=== PATIENT | male | born 1990 | race Caucasian/White ===

== ENCOUNTER 2018-02-12 21:51 | Observation (INO) | payer SELFPAY ==
[~2018-02-12] VITALS: Ht 170.2 cm; Wt 65.0 kg
[2018-02-12 22:03] VITALS: BP 121/77; PULSE 62; RESP 18; TEMP 97.8; O2SAT 99
[2018-02-12 22:50] LABS: AUTOMATED NEUTROPHIL # 5.5 TH/MM3 (1.8-7.7); BASOPHIL # 0.1 TH/MM3 (0-0.2); BASOPHIL % 1.1 % (0.0-2.0); EOSINOPHIL # 0.4 TH/MM3 (0-0.4); EOSINOPHIL % 4.4 % (0.0-4.0); HEMATOCRIT 46.9 % (39.0-51.0); HEMOGLOBIN 16.4 GM/DL (13.0-17.0); LYMPH % 16.9 % (9.0-44.0); LYMPHOCYTE # 1.4 TH/MM3 (1.0-4.8); MEAN CORPUSCULAR HEMOGLOBIN 30.8 PG (27.0-34.0); MEAN PLATELET VOLUME 9.6 FL (7.0-11.0); MONO % 10.8 % (0.0-8.0); MONOCYTE # 0.9 TH/MM3 (0-0.9); NEUT % 66.8 % (16.0-70.0); PLATELET COUNT 183 TH/MM3 (150-450); RED BLOOD COUNT 5.33 MIL/MM3 (4.50-5.90); WHITE BLOOD COUNT 8.2 TH/MM3 (4.0-11.0)
[2018-02-12 23:07] LABS: ALBUMIN 4.3 GM/DL (3.4-5.0); AST (GOT) 16 U/L (15-37); BICARBONATE 23.1 MEQ/L (21.0-32.0); BLOOD UREA NITROGEN 6 MG/DL (7-18); CALCIUM 8.6 MG/DL (8.5-10.1); CHLORIDE 108 MEQ/L (98-107); CREATININE 1.04 MG/DL (0.60-1.30); GLOMERULAR FILTRATION RATE 85 ML/MIN (>89); GLUCOSE,RANDOM 100 MG/DL (74-106); SODIUM (NA) 142 MEQ/L (136-145)
[2018-02-12 23:08] LABS: ALT (GPT) 22 U/L (12-78)
[2018-02-12 23:10] LABS: ALKALINE PHOSPHATASE 69 U/L (45-117); TOTAL BILIRUBIN ADULT 0.4 MG/DL (0.2-1.0); TOTAL PROTEIN 7.6 GM/DL (6.4-8.2)
[2018-02-12] MEDS ORDERED: SODIUM CHLOR 0.9% 1000 ML INJ 1,000 ML IV ONE (23:30)
[2018-02-13 00:23] LABS: INTERNATIONAL NORMALIZED RATIO 1.3 RATIO; PROTHROMBIN TIME - PATIENT 12.8 SEC (9.8-11.6)
--- NOTE | 2018-02-13 00:43 | PD ---
HPI Chief Complaint: OD/ Ingestion Time Seen by Provider: 23:20 Travel History International Travel<30 days: No Contact w/Intl Traveler<30days: No Traveled to known affect area: No History of Present Illness HPI The patient is a 27 year old male who presents to the [facility] emergency department with a history of suicidal ideations and an attempt to harm himself prior to arrival at approximately 5 PM today. Patient reports that he took a box of Advil cold and cough and drink a bottle of NyQuil cold medicine. The patient reports that he also drank 2 beers. The patient reports that he has had depression with suicide attempt in the past in 2012. He reports that he has been diagnosed with bipolar disorder, however he has not ever been on any medications as an outpatient for treatment as he does not have insurance. The patient reports that since drinking the night well and ingesting the cough and cold medicine and he has had one episode of vomiting and one episode of diarrhea. The patient reports feeling sleepy, otherwise on review of systems he denies having any known recent fevers, cough or congestion, neck pain, chest pain, shortness of breath, abdominal pain, urinary symptoms, or neurologic symptoms. [facility] Past Medical History Narrative Medical The patient's past medical history is significant for bipolar disorder, history of a heart murmur, history of cardiac enlargement Heart Rhythm Problems: Yes (heart murmer and enlarged heart) Diminished Hearing: No Tetanus Vaccination: Unknown Influenza Vaccination: No Past Surgical History Narrative Surgical The patient's past surgical history is significant for right hand surgery as an Oral Surgery: Yes (right hand muscle place in his hand) Social History Alcohol Use: Yes (Drinks alcohol 4-5 times per week) Tobacco Use: No Substance Use: Yes (smoke a lot of marijauna) Allergies-Medications (Allergen,Severity, Reaction): Coded Allergies: shrimp (Verified Allergy, Severe, Anaphylaxis, 02/12/18) Reported Meds & Prescriptions Reported Meds & Active Scripts Active No Active Prescriptions or Reported Medications Review of Systems Except as stated in HPI: all other systems reviewed are Neg General / Constitutional: No: Fever Eyes: No: Visual changes HENT: No: Headaches Cardiovascular: No: Chest Pain or Discomfort Respiratory: No: Shortness of Breath Gastrointestinal: Positive: Nausea, Vomiting, Diarrhea, No: Abdominal Pain Genitourinary: No: Dysuria Musculoskeletal: No: Pain Skin: No Rash Neurologic: No: Weakness Psychiatric: Positive: Depression, Suicidal Ideations, Mood Disorder, No: Substance Abuse Endocrine: No: Polydipsia Hematologic/Lymphatic: No: Easy Bruising Physical Exam Narrative General: The patient is a well-developed well-nourished male in no acute distress. Head and Neck exam: Head is normocephalic atraumatic. Eyes: EOMI, pupils are equal round and reactive to light. Nose: Midline septum with pink mucous membranes Mouth: Dentition unremarkable. Moist mucus membranes. Posterior oropharynx is not erythematous. No tonsillar hypertrophy. Uvula midline. Airway patent. Neck: No palpable lymphadenopathy. No nuchal rigidity. No thyromegaly. Cardiovascular: Regular rate and rhythm without murmurs, gallops, or rubs. No pulse deficit to the extremities on simultaneous auscultation and palpation of his radial artery. Lungs: Clear to auscultation bilaterally. No wheezes, rhonchi, or rales. Abdomen: Soft, without tenderness to palpation in all 4 quadrants of the abdomen. No guarding, rebound, or rigidity. Normal bowel sounds are audible. No tenderness on palpation of McBurney's point. Extremities: No clubbing, cyanosis, or edema. 2+ pulses in all 4 extremities. No calf tenderness on palpation peer Back: No spinous process tenderness to palpation. No costovertebral angle tenderness to palpation. Neurologic Exam: Grossly nonfocal. Skin Exam: No rash noted. Intact skin that is warm and dry. Data Data Last Documented VS Vital Signs Date Time Temp Pulse Resp B/P (MAP) Pulse Ox O2 Delivery O2 Flow Rate FiO2 02/13/18 01:46 58 14 114/72 (86) 98 Room Air 02/12/18 22:03 97.8 Orders Orders Electrocardiogram (02/12/18 22:10) Complete Blood Count With Diff (02/12/18 22:10) Comprehensive Metabolic Panel (02/12/18 22:10) Psych Screen (02/12/18 22:10) Drug Screen, Random Urine (02/12/18 22:10) Alcohol (Ethanol) (02/12/18 22:10) Salicylates (Aspirin) (02/12/18 22:10) Tylenol (Acetaminophen) (02/12/18 22:10) Prothrombin Time / Inr (Pt) (02/12/18 23:20) Act Partial Throm Time (Ptt) (02/12/18 23:20) Sodium Chlor 0.9% 1000 Ml Inj (Ns 1000 M (02/12/18 23:30) Tylenol (Acetaminophen) (02/13/18 00:25) Acetylcysteine 20% Liq (Mucomyst 20% Liq (02/13/18 01:15) Acetylcysteine 20% Liq (Mucomyst 20% Liq (02/13/18 05:15) Ondansetron Inj (Zofran Inj) (02/13/18 01:45) Call Poison Control (02/13/18 01:37) Admit Order (Ed Use Only) (02/13/18 01:44) Labs Laboratory Tests Test 02/12/18 22:25 02/12/18 23:35 02/13/18 00:30 White Blood Count 8.2 TH/MM3 Red Blood Count 5.33 MIL/MM3 Hemoglobin 16.4 GM/DL Hematocrit 46.9 % Mean Corpuscular Volume 88.0 FL Mean Corpuscular Hemoglobin 30.8 PG Mean Corpuscular Hemoglobin Concent 35.0 % Red Cell Distribution Width 13.0 % Platelet Count 183 TH/MM3 Mean Platelet Volume 9.6 FL Neutrophils (%) (Auto) 66.8 % Lymphocytes (%) (Auto) 16.9 % Monocytes (%) (Auto) 10.8 % Eosinophils (%) (Auto) 4.4 % Basophils (%) (Auto) 1.1 % Neutrophils # (Auto) 5.5 TH/MM3 Lymphocytes # (Auto) 1.4 TH/MM3 Monocytes # (Auto) 0.9 TH/MM3 Eosinophils # (Auto) 0.4 TH/MM3 Basophils # (Auto) 0.1 TH/MM3 CBC Comment DIFF FINAL Differential Comment Blood Urea Nitrogen 6 MG/DL Creatinine 1.04 MG/DL Random Glucose 100 MG/DL Total Protein 7.6 GM/DL Albumin 4.3 GM/DL Calcium Level 8.6 MG/DL Alkaline Phosphatase 69 U/L Aspartate Amino Transf (AST/SGOT) 16 U/L Alanine Aminotransferase (ALT/SGPT) 22 U/L Total Bilirubin 0.4 MG/DL Sodium Level 142 MEQ/L Potassium Level 3.9 MEQ/L Chloride Level 108 MEQ/L Carbon Dioxide Level 23.1 MEQ/L Anion Gap 11 MEQ/L Estimat Glomerular Filtration Rate 85 ML/MIN Salicylates Level LESS THAN 1.7 MG/DL Urine Opiates Screen NEG Acetaminophen Level 47.0 MCG/ML 37.0 MCG/ML Urine Barbiturates Screen NEG Urine Amphetamines Screen NEG Urine Benzodiazepines Screen NEG Urine Cocaine Screen NEG Urine Cannabinoids Screen POS Ethyl Alcohol Level LESS THAN 3 MG/DL Prothrombin Time 12.8 SEC Prothromb Time International Ratio 1.3 RATIO Activated Partial Thromboplast Time 26.7 SEC MDM Medical Decision Making Medical Screen Exam Complete: Yes Emergency Medical Condition: Yes Medical Record Reviewed: Yes Differential Diagnosis Intentional medication overdose, versus Tylenol toxicity, versus liver failure, versus suicidal gesture Narrative Course During the course of the patient's emergency department visit, the patient's history, examination, and differential diagnosis were reviewed with the patient. The patient was placed on a school lunch monitor with oximetry and frequent blood pressure monitoring. The patient had IV access obtained and blood work sent for analysis. The patient's laboratory studies were reviewed and remarkable for A white count of 8.2, hemoglobin 16.4, platelets 183 with 10.8 monocytes, CMP is remarkable for chloride of 108, PT 12.8, PTT 26.7, INR 1.3. Initial Tylenol level was 47. The patient was started on Acetadote in anticipation of his repeat Tylenol level being at toxic doses. Urine drug screen was positive for cannabinoids, alcohol level less than 3. The patient's Tylenol level was repeated. The Tylenol level came back at 37. Poison control was called regarding this patient 's case. They recommended discontinuing the Acetadote. A Sorenson act was written on the patient. The patient's results were discussed with the patient, including the plan of care. I explained that further testing and/ or monitoring is indicated based on the patient's history, examination, and/ or laboratory findings. Therefore, I recommended admission for additional evaluation. The patient expressed understanding and was agreeable with this plan. The patient was admitted to the hospital in stable condition and [facility] Physician Communication Physician Communication The patient's case including history, pertinent physical examination findings, and laboratory studies were discussed with Dr. Brian. It was agreed that the patient would be admitted to the [place] [facility]ist service. Diagnosis Primary Impression: Suicidal overdose Qualified Codes: T50.902A - Poisoning by unspecified drugs, medicaments and biological substances, intentional self-harm, initial encounter Admitting Information Admitting Physician Requests: Observation Scripts No Active Prescriptions or Reported Meds Jackie Cano MD February 13, 2018 00:43
[2018-02-13] MEDS: ACETYLCYSTEINE 20% 6,000 MG/30 ML ORAL SOLN VIAL PO ONE ×2 (01:15→01:32)
[2018-02-13] MEDS ORDERED: MAGNESIUM HYDROXIDE SUSP 30 ML CUP PO PRN (01:45)
[2018-02-13] MEDS ORDERED: SENNOSIDES 8.6 MG TAB PO PRN (01:45)
[2018-02-13] MEDS ORDERED: NALOXONE HCL 0.4 MG/ML AMP IV PUSH PRN (01:45)
[2018-02-13] MEDS ORDERED: ONDANSETRON HCL 4 MG/2 ML VIAL IV ONE (01:45)
[2018-02-13] MEDS ORDERED: LACTULOSE SYRUP 20 GM/30 ML CUP PO PRN (01:45)
[2018-02-13] MEDS ORDERED: BISACODYL 10 MG SUPP RECTAL PRN (01:45)
[2018-02-13] MEDS ORDERED: SODIUM CHLORIDE 0.9% FLUSH 10 ML FLUSH IV FLUSH PRN (01:45)
[2018-02-13 01:46] VITALS: BP 114/72; PULSE 58; RESP 14; O2SAT 98
[2018-02-13] MEDS ORDERED: ONDANSETRON ODT 4 MG TAB PO PRN (02:00)
[2018-02-13] MEDS: SODIUM CHLOR 0.9% 1000 ML INJ 1,000 ML IV SCH ×2 (02:05→11:44)
[2018-02-13] MEDS ORDERED: PROCHLORPERAZINE INJ 10 MG/2 ML VIAL IV PUSH ONE (02:45)
[2018-02-13 03:24] VITALS: BP 107/67; PULSE 53; RESP 16; TEMP 97.6; O2SAT 98
--- NOTE | 2018-02-13 04:06 | HHI.HP ---
HPI Service [facility] Primary Care Physician No Primary Care Physician Admission Diagnosis Intentional overdose, Depression, BA Diagnoses: Chief Complaint: suicide attempt, overdose. Travel History International Travel<30 Days: No Contact w/Intl Traveler <30 Da: No Traveled to Known Affected Are: No History of Present Illness Mr. Pacheco is a pleasant 27-year-old male with a history of previous suicidal attempt who presented to the emergency department after intentional overdose to harm himself. He took a box of Advil cold and cough medication, drank a bottle of NyQuil cold medication, also drank 2 beers. At the time of this interview, patient denies any chest pain, shortness of breath, fever or chills. He is resting well. No changes in bowel or bladder habits. Review of Systems Except as stated in HPI: all other systems reviewed are Neg Past Family Social History Past Medical History Bipolar disorder Previous suicide attempt Past Surgical History Right hand surgery as a child. Reported Medications Does not take any medication on a regular basis Allergies: Coded Allergies: shrimp (Verified Allergy, Severe, Anaphylaxis, 02/12/18) Family History Father with hypoglycemia Social History Patient drinks alcohol 4-5 times per week. Denies using tobacco. He does smoke marijuana. He has a history of IV drug use but quit many years ago with help of a drug court. Physical Exam Vital Signs Vital Signs Date Time Temp Pulse Resp B/P (MAP) Pulse Ox O2 Delivery O2 Flow Rate FiO2 02/13/18 03:24 97.6 53 16 107/67 (80) 98 02/13/18 03:03 02/13/18 01:46 58 14 114/72 (86) 98 Room Air 02/12/18 23:26 52 98 Room Air 02/12/18 22:03 97.8 62 18 121/77 (92) 99 Physical Exam GENERAL: This is a well-nourished, well-developed patient, in no apparent distress. SKIN: No rashes, ecchymoses or lesions. Warm and dry. HEAD: Atraumatic. Normocephalic. No temporal or scalp tenderness. EYES: Pupils equal round and reactive. No injection or drainage. ENT: Nose without bleeding, purulent drainage or septal hematoma. Airway patent. NECK: Trachea midline. No lymphadenopathy. Supple, nontender, no meningeal signs. CARDIOVASCULAR: Regular rate and rhythm without murmurs, gallops, or rubs. No JVD. RESPIRATORY: Clear to auscultation. Breath sounds equal bilaterally. No wheezes , rales, or rhonchi. GASTROINTESTINAL: Abdomen soft, non-tender, nondistended. No guarding. MUSCULOSKELETAL: Extremities without clubbing, cyanosis, or edema. NEUROLOGICAL: Awake and alert. Cranial nerves II through XII intact. No focal neurological deficits. Normal speech. Laboratory Laboratory Tests Test 02/12/18 22:25 02/12/18 23:35 02/13/18 00:30 White Blood Count 8.2 Red Blood Count 5.33 Hemoglobin 16.4 Hematocrit 46.9 Mean Corpuscular Volume 88.0 Mean Corpuscular Hemoglobin 30.8 Mean Corpuscular Hemoglobin Concent 35.0 Red Cell Distribution Width 13.0 Platelet Count 183 Mean Platelet Volume 9.6 Neutrophils (%) (Auto) 66.8 Lymphocytes (%) (Auto) 16.9 Monocytes (%) (Auto) 10.8 Eosinophils (%) (Auto) 4.4 Basophils (%) (Auto) 1.1 Neutrophils # (Auto) 5.5 Lymphocytes # (Auto) 1.4 Monocytes # (Auto) 0.9 Eosinophils # (Auto) 0.4 Basophils # (Auto) 0.1 CBC Comment DIFF FINAL Differential Comment Blood Urea Nitrogen 6 Creatinine 1.04 Random Glucose 100 Total Protein 7.6 Albumin 4.3 Calcium Level 8.6 Alkaline Phosphatase 69 Aspartate Amino Transf (AST/SGOT) 16 Alanine Aminotransferase (ALT/SGPT) 22 Total Bilirubin 0.4 Sodium Level 142 Potassium Level 3.9 Chloride Level 108 Carbon Dioxide Level 23.1 Anion Gap 11 Estimat Glomerular Filtration Rate 85 Salicylates Level LESS THAN 1.7 Urine Opiates Screen NEG Acetaminophen Level 47.0 37.0 Urine Barbiturates Screen NEG Urine Amphetamines Screen NEG Urine Benzodiazepines Screen NEG Urine Cocaine Screen NEG Urine Cannabinoids Screen POS Ethyl Alcohol Level LESS THAN 3 Prothrombin Time 12.8 Prothromb Time International Ratio 1.3 Activated Partial Thromboplast Time 26.7 Result Diagram: 02/12/18222402/12/182224 Caprini VTE Risk Assessment Caprini VTE Risk Assessment: No/Low Risk (score <= 1) Caprini Risk Assessment Model Point Value = 1 Point Value = 2 Point Value = 3 Point Value = 5 Age 41-60 Minor surgery BMI > 25 kg/m2 Swollen legs Varicose veins or History of unexplained or recurrent spontaneous Oral contraceptives or hormone replacement Sepsis (< 1 month) Serious lung disease, including pneumonia (< 1 month) Abnormal pulmonary function Acute myocardial infarction Congestive heart failure (< 1 month) History of inflammatory bowel disease Medical patient at bed rest Age 61-74 Arthroscopic surgery Major open surgery (> 45 min) Laparoscopic surgery (> 45 min) Malignancy Confined to bed (> 72 hours) Immobilizing plaster cast Central venous access Age >= 75 History of VTE Family history of VTE Factor V Leiden Prothrombin [id number] Lupus anticoagulant Anticardiolipin antibodies Elevated serum homocysteine Heparin-induced thrombocytopenia Other congenital or acquired thrombophilia Stroke (< 1 month) Elective arthroplasty Hip, pelvis, or leg fracture Acute spinal cord injury (< 1 month) Prophylaxis Regimen Total Risk Factor Score Risk Level Prophylaxis Regimen 0-1 Low Early ambulation 2 Moderate Order ONE of the following: *Sequential Compression Device (SCD) *Heparin 5000 units SQ BID 3-4 Higher Order ONE of the following medications: *Heparin 5000 units SQ TID *Enoxaparin/Lovenox 40 mg SQ daily (WT < 150 kg, CrCl > 30 mL/min) *Enoxaparin/Lovenox 30 mg SQ daily (WT < 150 kg, CrCl > 10-29 mL/min) *Enoxaparin/Lovenox 30 mg SQ BID (WT < 150 kg, CrCl > 30 mL/min) AND/OR *Sequential Compression Device (SCD) 5 or more Highest Order ONE of the following medications: *Heparin 5000 units SQ TID (Preferred with Epidurals) *Enoxaparin/Lovenox 40 mg SQ daily (WT < 150 kg, CrCl > 30 mL/min) *Enoxaparin/Lovenox 30 mg SQ daily (WT < 150 kg, CrCl > 10-29 mL/min) *Enoxaparin/Lovenox 30 mg SQ BID (WT < 150 kg, CrCl > 30 mL/min) AND *Sequential Compression Device (SCD) Assessment and Plan Problem List: (1) Suicidal overdose ICD Code: T50.902A - Poisoning by unspecified drugs, medicaments and biological substances, intentional self-harm, initial encounter (2) Bipolar disorder ICD Code: F31.9 - Bipolar disorder, unspecified Assessment and Plan Mr. Pacheco is a 27 year old male with a history of Bipolar disorder, previous suicide attempt who was admitted and lambert acted due to overdose on medications with intention to harm himself. Patient reports no specific stress that led to this attempt. Bipolar disorder Suicidal overdose - Overdosed on Advil cold and cough med, NyQuil and also had Beer - Acetaminophen level 47 --> 37. Will check Acetaminophen level. He received Acetylcysteine once in the ED. - Patient is lambert acted by ED provider and currently has a sitter. - Psychiatry consult pending. Congenital kidney condition - Has one kidney. No acute concerns. Full code. Ambulation. Cory Brian DO February 13, 2018 04:06
[2018-02-13 04:34] LABS: INTERNATIONAL NORMALIZED RATIO 1.2 RATIO; PROTHROMBIN TIME - PATIENT 12.4 SEC (9.8-11.6)
[2018-02-13] MEDS ORDERED: ACETYLCYSTEINE 20% 6,000 MG/30 ML ORAL SOLN VIAL PO SCH (05:15)
[2018-02-13 07:26] VITALS: BP 118/72; PULSE 57; RESP 18; TEMP 97.6; O2SAT 99
[2018-02-13] MEDS ORDERED: SODIUM CHLORIDE 0.9% FLUSH 10 ML FLUSH IV FLUSH SCH (09:00)
--- NOTE | 2018-02-13 09:31 | PD.PSY.CON ---
Provisional Diagnosis Admission Date February 13, 2018 at 01:46 [place] I. Bipolar disorder, depressive episode vs substance-induced mood disorder, cannabis and alcohol use disorder [place] II. Deferred [place] III. Tylenol overdose [place] IV. Homelessness, drug abuse [place] V. 40 History of Present Illness Service Psychiatry Consult Requested By ER team Reason for Consult Suicidal Primary Care Physician No Primary Care Physician HPI The patient is 27-year-old man, homeless, single, employed, with psychiatric history of bipolar disorder, alcohol and cannabis use disorder, 1 previous psychiatric hospitalizations, 2 previous suicide attempts, no significant medical history, who presented to the emergency department after intentional overdose to harm himself. He took a box of Advil cold and cough medication, drank a bottle of NyQuil cold medication, also drank 2 beers. Patient was consulted to psychiatry to address suicidal attempt. Collateral information from her mother Vianney, , was obtained. Mother states that the patient has been homeless, seclusive, drinking alcohol and using drugs , and also being depressed for some months. She says that the patient should be psychotropics, but he is not taking them. She is afraid that the patient is going to kill himself if his release. The case was also discussed with primary medical team. EMR reviewed. Psychiatric evaluation the patient is calm, cooperative, pleasant. The patient is eating his breakfast. He reports that yesterday he was feeling overwhelmed, frustrated and he overdosed with intentions today. The patient says that he took about 20 pills, took alcohol and an entire bottle of NyQuil. Patient states that when he did that he wanted to kill himself. He says that time to time, even though he is doing okay, he has like a black cloud and he feels very down and depressed and the only thing that he wants is to kill himself. Patient reports that he does not know what happened to him. He says that he tried to commit suicide in the past under the same circumstances. He does report symptoms of depression in the context of homelessness, lack of social and family support, "generalized pessimism.". At this moment he denies suicidal enemas ideation, he denies visual and auditory hallucinations. He is fully oriented 3. Review of Systems Constitutional: DENIES: Diaphoretic episodes, Fatigue, Fever, Weight gain, Weight loss, Chills, Dizziness, Change in appetite, Night Sweats Endocrine: DENIES: Heat/cold intolerance, Polydipsia, Polyuria, Polyphagia Eyes: DENIES: Blurred vision, Diplopia, Eye inflammation, Eye pain, Vision loss , Photosensitivity, Double Vision Ears, nose, mouth, throat: DENIES: Tinnitus, Hearing loss, Vertigo, Nasal discharge, Oral lesions, Throat pain, Hoarseness, Ear Pain, Running Nose, Epistaxis, Sinus Pain, Toothache, Odynophagia Respiratory: DENIES: Apneas, Cough, Snoring, Wheezing, Hemoptysis, Sputum production, Shortness of breath Cardiovascular: DENIES: Chest pain, Palpitations, Syncope, Dyspnea on Exertion , PND, Lower Extremity Edema, Orthopnea, Claudication Gastrointestinal: DENIES: Abdominal pain, Black stools, Bloody stools, Constipation, Diarrhea, Nausea, Vomiting, Difficulty Swallowing, Anorexia Genitourinary: DENIES: Sexual dysfunction, Urinary frequency, Urinary incontinence, Urgency, Hematuria, Dysuria, Nocturia, Penile Discharge, Testicular Pain, Testicular Swelling Musculoskeletal: DENIES: Joint pain, Muscle aches, Stiffness, Joint Swelling, Back pain, Neck pain Integumentary: DENIES: Abnormal pigmentation, Nail changes, Pruritus, Rash Hematologic/lymphatic: DENIES: Bruising, Lymphadenopathy Immunologic/allergic: DENIES: Eczema, Urticaria Neurologic: DENIES: Abnormal gait, Headache, Localized weakness, Paresthesias, Seizures, Speech Problems, Tremor, Poor Balance Psychiatric: COMPLAINS OF: Depression, Suicidal Ideation, DENIES: Anxiety, Confusion, Mood changes, Hallucinations, Agitation, Homicidal Ideation, Delusions Past Family Social History Coded Allergies: shrimp (Verified Allergy, Severe, Anaphylaxis, 02/12/18) No Active Prescriptions or Reported Meds Current Medications Medications (Trade) Dose Ordered Sig/Kerri Route Start Time Stop Time Status Last Admin Sodium Chloride 1,000 ml @ 100 mls/hr Q10H IV 02/13/18 01:44 02/13/18 02:05 (NS Flush) 2 ml UNSCH PRN IV FLUSH 02/13/18 01:45 (NS Flush) 2 ml BID IV FLUSH 02/13/18 09:00 (Zofran Odt) 4 mg Q6H PRN PO 02/13/18 02:00 (Narcan Inj) 0.4 mg UNSCH PRN IV PUSH 02/13/18 01:45 (Milk Of Magnesia Liq) 30 ml Q12H PRN PO 02/13/18 01:45 (Senokot) 17.2 mg Q12H PRN PO 02/13/18 01:45 (Dulcolax Supp) 10 mg DAILY PRN RECTAL 02/13/18 01:45 (Lactulose Liq) 30 ml DAILY PRN PO 02/13/18 01:45 Family Psych History He has a cousin with bipolar disorder Social History Patient was born and raised in [facility], single, he [facility], his single, employed as a bookkeeping, he has a bachelor credits Patient's Strengths (min. 2) Verbal communication Physical Exam No tremors, no EPS, no withdrawal symptoms, no stiffness, no psychomotor agitation retardation, no gait disturbance Vital Signs Vital Signs Date Time Temp Pulse Resp B/P (MAP) Pulse Ox O2 Delivery O2 Flow Rate FiO2 02/13/18 07:26 97.6 57 18 118/72 (87) 99 02/13/18 01:46 Room Air I/O 02/13/18 02/13/18 02/14/18 08:00 16:00 00:00 Intake Total 2300 ml Balance 2300 ml Lab Results Test 02/12/18 22:25 02/12/18 23:35 02/13/18 00:30 02/13/18 04:10 White Blood Count 8.2 TH/MM3 Red Blood Count 5.33 MIL/MM3 Hemoglobin 16.4 GM/DL Hematocrit 46.9 % Mean Corpuscular Volume 88.0 FL Mean Corpuscular Hemoglobin 30.8 PG Mean Corpuscular Hemoglobin Concent 35.0 % Red Cell Distribution Width 13.0 % Platelet Count 183 TH/MM3 Mean Platelet Volume 9.6 FL Neutrophils (%) (Auto) 66.8 % Lymphocytes (%) (Auto) 16.9 % Monocytes (%) (Auto) 10.8 % Eosinophils (%) (Auto) 4.4 % Basophils (%) (Auto) 1.1 % Neutrophils # (Auto) 5.5 TH/MM3 Lymphocytes # (Auto) 1.4 TH/MM3 Monocytes # (Auto) 0.9 TH/MM3 Eosinophils # (Auto) 0.4 TH/MM3 Basophils # (Auto) 0.1 TH/MM3 CBC Comment DIFF FINAL Differential Comment Blood Urea Nitrogen 6 MG/DL Creatinine 1.04 MG/DL Random Glucose 100 MG/DL Total Protein 7.6 GM/DL Albumin 4.3 GM/DL Calcium Level 8.6 MG/DL Alkaline Phosphatase 69 U/L Aspartate Amino Transf (AST/SGOT) 16 U/L Alanine Aminotransferase (ALT/SGPT) 22 U/L Total Bilirubin 0.4 MG/DL Sodium Level 142 MEQ/L Potassium Level 3.9 MEQ/L Chloride Level 108 MEQ/L Carbon Dioxide Level 23.1 MEQ/L Anion Gap 11 MEQ/L Estimat Glomerular Filtration Rate 85 ML/MIN Salicylates Level LESS THAN 1.7 MG/DL Urine Opiates Screen NEG Acetaminophen Level 47.0 MCG/ML 37.0 MCG/ML 17.5 MCG/ML Urine Barbiturates Screen NEG Urine Amphetamines Screen NEG Urine Benzodiazepines Screen NEG Urine Cocaine Screen NEG Urine Cannabinoids Screen POS Ethyl Alcohol Level LESS THAN 3 MG/DL Prothrombin Time 12.8 SEC 12.4 SEC Prothromb Time International Ratio 1.3 RATIO 1.2 RATIO Activated Partial Thromboplast Time 26.7 SEC Mental Status Examination Appearance: Appropriate Consciousness: Alert Orientation: x4 Motor Activity: Normal gait Speech: Unremarkable Language: Adequate Fund of Knowledge: Adequate Attention and Concentration: Adequate Memory: Unremarkable Mood: Sad Affect: Appropriate Thought Process & Associations: Intact Thought Content: Appropriate Hallucination Type: None Delusion Type: None Suicidal Ideation: Yes Suicidal Plan: No Suicidal Intention: No Homicidal Ideation: No Homicidal Plan: No Homicidal Intention: No Insight: Poor Judgment: Poor Assessment & Plan Problem List: (1) Bipolar disorder ICD Codes: F31.9 - Bipolar disorder, unspecified Assessment & Plan: Psychiatric evaluation the patient presents calm, cooperative and pleasant. The patient reports that he has been feeling frustrated, depressed, and having moments of feeling really down and suicidal. He reports that yesterday he felt "like a black cloud in my head" and then he tried to commit suicide by overdosing with Tylenol, NyQuil and alcohol. The patient has an extensive history of self harming behavior, bipolar disorder, poor impulse control, alcohol and cannabis use disorder, previous suicide attempts, and at this moment he represents an elevated risk of danger to self and needs psychiatric admission for stabilization and safety. Mother has the believe patient is acutely suicidal and if he is DC he will kill him self. Patient needs psychiatric admission for stabilization. We will start Prozac 10 mg daily for depression . [place] protocol[facility] Brief supportive psychotherapy provided. Assessment & Plan Estimated LOS: days Problem Qualifiers (1) Bipolar disorder: Rob Shankar MD February 13, 2018 09:31
[2018-02-13] MEDS ORDERED: LORazepam 1 MG TAB PO PRN (09:45)
[2018-02-13] MEDS ORDERED: FLUMAZENIL 0.5 MG/5 ML VIAL IV PUSH PRN (09:45)
[2018-02-13] MEDS ORDERED: FOLIC ACID 1 MG TAB PO ONE (09:45)
[2018-02-13] MEDS ORDERED: THIAMINE HCL 100 MG TAB PO ONE (09:45)
[2018-02-13] MEDS ORDERED: LORazepam 2 MG TAB PO PRN (09:45)
[2018-02-13] MEDS ORDERED: LORazepam 2 MG/ML VIAL IV PUSH PRN ×4 (09:45)
[2018-02-13] MEDS ORDERED: MULTIVITAMIN TAB PO ONE (09:45)
[2018-02-13 12:00] VITALS: BP 108/75; PULSE 64; RESP 18; TEMP 98; O2SAT 99
[2018-02-13] MEDS ORDERED: FLUoxetine HCL 10 MG CAP PO SCH (13:00)
--- NOTE | 2018-02-13 14:57 | EKG ---
Date Performed: 02/12/2018 Time Performed: 22:41:13 PTAGE: 27 years EKG: ECTOPIC ATRIAL BRADYCARDIA WITH SHORT IN INTERVAL ABNORMAL RHYTHM ECG NO PREVIOUS TRACING DOCTOR: Albert Benedict Interpretating Date/Time 02/13/2018 14:55:29
[2018-02-14] MEDS ORDERED: MULTIVITAMIN TAB PO SCH (09:00)
[2018-02-14] MEDS ORDERED: THIAMINE HCL 100 MG TAB PO SCH (09:00)
[2018-02-14] MEDS ORDERED: FOLIC ACID 1 MG TAB PO SCH (09:00)
== END 2018-02-13 15:08 ==
LOC: NEPE 21:51 → NEDA 02-13 01:46 → NEPGCP 02-13 03:17
PROVIDERS: ADMIT Internal Medicine; ATTEND Internal Medicine
DX: T39.1X2A Poisoning by 4-Aminophenol derivatives, intentional self-harm, initial encounter (principal); F31.9 Bipolar disorder, unspecified; F12.90 Cannabis use, unspecified, uncomplicated; Z59.0 Homelessness; I51.7 Cardiomegaly; Z91.5 Personal history of self-harm
CPT/HCPCS: 80053; 80307; 85025; 85610; 85730; 93005; 96360; 96361; 99285; G0378; J7030

== ENCOUNTER 2018-02-13 13:15 | Inpatient (IN) | payer SELFPAY ==
[~2018-02-13] VITALS: Ht 170.2 cm; Wt 59.2 kg
[2018-02-13 18:00] VITALS: BP 117/64; PULSE 61; RESP 16; TEMP 97.8; O2SAT 98
[2018-02-13] MEDS ORDERED: LORazepam 2 MG/ML VIAL IV PUSH PRN ×4 (20:00)
[2018-02-13] MEDS ORDERED: LORazepam 1 MG TAB PO PRN (20:00)
[2018-02-13] MEDS ORDERED: LORazepam 2 MG TAB PO PRN (20:00)
[2018-02-13] MEDS ORDERED: FLUMAZENIL 0.5 MG/5 ML VIAL IV PUSH PRN (20:00)
[2018-02-13] MEDS ORDERED: MAGNESIUM HYDROXIDE SUSP 30 ML CUP PO PRN (20:15)
[2018-02-13] MEDS ORDERED: diphenhydrAMINE HCL 50 MG/ML VIAL IM PRN (20:15)
[2018-02-13] MEDS ORDERED: diphenhydrAMINE HCL 50 MG CAP PO PRN (20:15)
[2018-02-13] MEDS ORDERED: ALUMINUM/MAGNESIUM/SIMETH 30 ML CUP PO PRN (20:15)
[2018-02-13] MEDS ORDERED: ACETAMINOPHEN 325 MG TAB PO PRN (20:15)
[2018-02-13] MEDS ORDERED: hydrOXYzine HCL 50 MG TAB PO PRN (20:15)
[2018-02-13] MEDS ORDERED: diphenhydrAMINE HCL 50 MG/ML VIAL - HS PRN IM (21:00)
[2018-02-13] MEDS ORDERED: diphenhydrAMINE HCL 50 MG CAP - HS PRN PO (21:00)
[2018-02-14 06:20] VITALS: BP 125/74; PULSE 60; RESP 18; TEMP 98.1; O2SAT 97
[2018-02-14 08:03] LABS: BICARBONATE 28.1 MEQ/L (21.0-32.0); BLOOD UREA NITROGEN 10 MG/DL (7-18); CALCIUM 8.7 MG/DL (8.5-10.1); CHLORIDE 108 MEQ/L (98-107); CREATININE 0.98 MG/DL (0.60-1.30); GLOMERULAR FILTRATION RATE 91 ML/MIN (>89); GLUCOSE,RANDOM 85 MG/DL (74-106); SODIUM (NA) 143 MEQ/L (136-145)
[2018-02-14 08:05] LABS: CHOLESTEROL 124 MG/DL (120-200); TRIGLYCERIDES 168 MG/DL (42-150)
[2018-02-14 08:06] LABS: CHOLESTEROL/ HDL RATIO 3.31 RATIO; HDL CHOLESTEROL 37.4 MG/DL (40.0-60.0); LDL CHOLESTEROL 53 MG/DL (0-99)
[2018-02-14] MEDS ORDERED: FLUoxetine HCL 10 MG CAP PO SCH (09:00)
[2018-02-14] MEDS ORDERED: INFLUENZA VIRUS VACCINE (QUADRIVALENT) 0.5 ML SYR IM ONE (10:00)
--- NOTE | 2018-02-14 13:16 | HHI.HP ---
Provisional Diagnosis Admission Date February 13, 2018 at 15:10 [place] I. February 13, 2018 at 01:46 [place] I. Bipolar disorder, depressive episode vs substance-induced mood disorder, cannabis and alcohol use disorder [place] II. [place] II. Deferred [place] III. [place] III. Tylenol overdose [place] IV. [place] IV. Homelessness, drug abuse [place] V. [place] V. 40 Certification of Person's Competence To Provide Express and Informed Consent I have personally examined Miguel Angel Pacheco , a person being served at [facility] on, February 14, 2018 13:12. Express and informed consent means consent voluntarily given in writing, by a competent person, after sufficient explanation and disclosure of the subject matter involved to enable the person to make a knowing and willful decision without any element of force, fraud, deceit, duress, or other form of constraint or coercion. This person is 18 years of age or older, is not now known to be incompetent to consent to treatment with a guardian advocate, and does not have a health care surrogate or proxy currently making medical treatment decisions. I have found this person to be one of the following: [] Competent to provide express and informed consent, as defined above, for voluntary admission to this facility and is competent to provide express and informed consent for treatment. He/she has the consistent capacity to make well reasoned, willful, and knowing decisions concerning his or her medical or mental health treatment. The person fully and consistently understands the purpose of the admission for examination/placement and is fully capable of personally exercising all rights assured [place] [] Incompetent to provide express and informed consent to voluntary admission, and this is incompetent to provide express and informed consent to treatment. The person must be transferred to involuntary status and a petition for a guardian advocate filed with the Circuit Court. [x] Refusing to provide express and informed consent to voluntary admission but is competent to provide express and informed consent for treatment. The person must be discharged or transferred to involuntary status. Form shall be completed within 24 hours of a person's arrival at the receiving facility and filed in the clinical record of each person: 1. Admitted on a voluntary basis 2. Permitted to provide express and informed consent to his/her own treatment 3. Allowed to transfer from involuntary to voluntary status 4. Prior to permitting a person to consent to his or her own treatment after having been previously found incompetent to consent to treatment. History of Present Illness Capacity: Has Capacity HPI This is a late entry, the patient was seen in February 13 at 10:30 AM. The patient is 27-year-old man, homeless, single, employed, with psychiatric history of bipolar disorder, alcohol and cannabis use disorder, 1 previous psychiatric hospitalizations, 2 previous suicide attempts, no significant medical history, who presented to the emergency department after intentional overdose to harm himself. He took a box of Advil cold and cough medication, drank a bottle of NyQuil cold medication, also drank 2 beers. Patient was consulted to psychiatry to address suicidal attempt. Collateral information from her mother Vianney, , was obtained. Mother states that the patient has been homeless, seclusive, drinking alcohol and using drugs , and also being depressed for some months. She says that the patient should be psychotropics, but he is not taking them. She is afraid that the patient is going to kill himself if his release. The case was also discussed with primary medical team. EMR reviewed. Psychiatric evaluation the patient is calm, cooperative, pleasant. The patient is eating his breakfast. He reports that yesterday he was feeling overwhelmed, frustrated and he overdosed with intentions today. The patient says that he took about 20 pills, took alcohol and an entire bottle of NyQuil. Patient states that when he did that he wanted to kill himself. He says that time to time, even though he is doing okay, he has like a black cloud and he feels very down and depressed and the only thing that he wants is to kill himself. Patient reports that he does not know what happened to him. He says that he tried to commit suicide in the past under the same circumstances. He does report symptoms of depression in the context of homelessness, lack of social and family support, "generalized pessimism.". At this moment he denies suicidal enemas ideation, he denies visual and auditory hallucinations. He is fully oriented 3. Review of Systems Constitutional: DENIES: Diaphoretic episodes, Fatigue, Fever, Weight gain, Weight loss, Chills, Dizziness, Change in appetite, Night Sweats Endocrine: DENIES: Heat/cold intolerance, Polydipsia, Polyuria, Polyphagia Eyes: DENIES: Blurred vision, Diplopia, Eye inflammation, Eye pain, Vision loss , Photosensitivity, Double Vision Ears, nose, mouth, throat: DENIES: Tinnitus, Hearing loss, Vertigo, Nasal discharge, Oral lesions, Throat pain, Hoarseness, Ear Pain, Running Nose, Epistaxis, Sinus Pain, Toothache, Odynophagia Respiratory: DENIES: Apneas, Cough, Snoring, Wheezing, Hemoptysis, Sputum production, Shortness of breath Cardiovascular: DENIES: Chest pain, Palpitations, Syncope, Dyspnea on Exertion , PND, Lower Extremity Edema, Orthopnea, Claudication Gastrointestinal: DENIES: Abdominal pain, Black stools, Bloody stools, Constipation, Diarrhea, Nausea, Vomiting, Difficulty Swallowing, Anorexia Genitourinary: DENIES: Sexual dysfunction, Urinary frequency, Urinary incontinence, Urgency, Hematuria, Dysuria, Nocturia, Penile Discharge, Testicular Pain, Testicular Swelling Musculoskeletal: DENIES: Joint pain, Muscle aches, Stiffness, Joint Swelling, Back pain, Neck pain Integumentary: DENIES: Abnormal pigmentation, Nail changes, Pruritus, Rash Hematologic/lymphatic: DENIES: Bruising, Lymphadenopathy Immunologic/allergic: DENIES: Eczema, Urticaria Neurologic: DENIES: Abnormal gait, Headache, Localized weakness, Paresthesias, Seizures, Speech Problems, Tremor, Poor Balance Psychiatric: COMPLAINS OF: Mood changes, Suicidal Ideation, DENIES: Anxiety, Confusion, Depression, Hallucinations, Agitation, Homicidal Ideation, Delusions Substance Abuse History Drugs/Alcohol past 12 months Alcohol daily, marihuana Past Family Social History Coded Allergies: shrimp (Verified Allergy, Severe, Anaphylaxis, 02/12/18) No Active Prescriptions or Reported Meds Current Medications Medications (Trade) Dose Ordered Sig/Kerri Route Start Time Stop Time Status Last Admin (Ativan) 1 mg Q4H PRN PO 02/13/18 20:00 (Ativan Inj) 1 mg Q4H PRN IV PUSH 02/13/18 20:00 (Ativan) 2 mg Q2H PRN PO 02/13/18 20:00 (Ativan Inj) 2 mg Q2H PRN IV PUSH 02/13/18 20:00 (Ativan Inj) 2 mg Q1H PRN IV PUSH 02/13/18 20:00 (Ativan Inj) 2 mg Q15M PRN IV PUSH 02/13/18 20:00 (Romazicon Inj) 0.2 mg Q1M PRN IV PUSH 02/13/18 20:00 (Atarax) 50 mg Q6H PRN PO 02/13/18 20:15 (Benadryl) 50 mg Q6H PRN PO 02/13/18 20:15 (Benadryl Inj) 50 mg Q6H PRN IM 02/13/18 20:15 (Benadryl) 50 mg HS PRN PO 02/13/18 21:00 (Benadryl Inj) 50 mg HS PRN IM 02/13/18 21:00 (Tylenol) 650 mg Q4H PRN PO 02/13/18 20:15 (Milk Of Magnesia Liq) 30 ml DAILY PRN PO 02/13/18 20:15 (Mag-Al Plus Susp Liq) 30 ml Q6H PRN PO 02/13/18 20:15 (PROzac) 10 mg DAILY PO 02/14/18 09:00 Family Psych History Family Psych History He has a cousin with bipolar disorder Social History Social History Patient was born and raised in [facility], he is homeless, employed, single, his highest level of education is high school Patient's Strengths (min. 2) Verbal communication Physical Exam No tremors, no EPS, no withdrawal symptoms, no gait disturbance, no psychomotor agitation or retardation Vital Signs Vital Signs Date Time Temp Pulse Resp B/P (MAP) Pulse Ox O2 Delivery O2 Flow Rate FiO2 02/14/18 06:20 98.1 60 18 125/74 (91) 97 I/O 02/14/18 02/14/18 02/15/18 08:00 16:00 00:00 Intake Total 240 ml Balance 240 ml Lab Results Test 02/14/18 07:04 Blood Urea Nitrogen 10 MG/DL Creatinine 0.98 MG/DL Random Glucose 85 MG/DL Calcium Level 8.7 MG/DL Sodium Level 143 MEQ/L Potassium Level 4.4 MEQ/L Chloride Level 108 MEQ/L Carbon Dioxide Level 28.1 MEQ/L Anion Gap 7 MEQ/L Estimat Glomerular Filtration Rate 91 ML/MIN Triglycerides Level 168 MG/DL Cholesterol Level 124 MG/DL LDL Cholesterol 53 MG/DL HDL Cholesterol 37.4 MG/DL Cholesterol/HDL Ratio 3.31 RATIO Mental Status Examination Appearance: Appropriate Consciousness: Alert Orientation: x4 Motor Activity: Normal gait Speech: Unremarkable Language: Adequate Fund of Knowledge: Adequate Attention and Concentration: Adequate Memory: Unremarkable Mood: Appropriate Affect: Appropriate Thought Process & Associations: Intact Thought Content: Appropriate Hallucination Type: None Delusion Type: None Suicidal Ideation: No Suicidal Plan: No Suicidal Intention: No Homicidal Ideation: No Homicidal Plan: No Homicidal Intention: No Insight: Adequate Judgment: Adequate Assessment & Plan Problem List: (1) Bipolar disorder ICD Codes: F31.9 - Bipolar disorder, unspecified Assessment & Plan: On Psychiatric evaluation the patient presents calm, cooperative and pleasant. The patient reports that he has been feeling frustrated, depressed, and having moments of feeling really down and suicidal. He reports that yesterday he felt "like a black cloud in my head" and then he tried to commit suicide by overdosing with Tylenol, NyQuil and alcohol. The patient has an extensive history of self harming behavior, bipolar disorder, poor impulse control, alcohol and cannabis use disorder, previous suicide attempts, and at this moment he represents an elevated risk of danger to self and needs psychiatric admission for stabilization and safety. Mother has the believe patient is acutely suicidal and if he is DC he will kill him self. Patient needs psychiatric admission for stabilization. We will start Prozac 10 mg daily for depression . [place] protocol. Transfer to [facility] once medically appropriate. Brief supportive psychotherapy provided. Assessment & Plan Estimated LOS: Rob Lucas MD February 14, 2018 13:16
--- NOTE | 2018-02-14 13:39 | HHI.PYPN ---
Subjective Remarks Patient seen for follow up, chart reviewed. Patient is a 19-year-old man, single, employed, domiciled with uncle for the past 2 months, past psychiatric history of bipolar disorder as per patient with no formal diagnoses , 1 previous psychiatric admission (5 years ago), 3 previous suicide attempts, no self-injurious behavior, with a substance use history of remote polysubstance use, currently with alcohol use disorder and marijuana use disorder, with a past medical history significant for enlarged heart and congenital kidney (1 kidney), who was brought into the ED after an overdose in a suicide attempt with a box of Advil cold and cough and a bottle of NyQuil along with ingestion of 2 beers in the context of worsening depression which patient was admitted to the inpatient psychiatry for further evaluation and management discussion with nursing staff reported. Patient was found sitting hospital bed B, cooperative. Patient states that his mood has been "up and down " reports feeling very stressed at work, feeling like a burden to his uncle who he is currently living with, reporting decrease in energy, feeling depressed that has been worsening recently for the past 2 days prior to suicide attempt but states that his depression usually "comes and goes". Patient denies any change in sleep, appetite or concentration. Patient reports having been evicted from his recent trailer along with pending drug charges which has been having him feel hopeless for the past few days and having suicide ideation on the day of the overdose. Patient reports of the overdose he had gone to work and when having arrived home had purchased [id number] medicine which she overdosed on and upon waking up several hours later had called his mother to report what he had done. Patient states that at that time he had hoped he had not woken up but stated "in the back of my mind I knew I would not from this ". Patient states that he did not feel disappointed did not succeed. Patient reports continue to feel depressed reports occasional auditory hallucinations the last time being months ago but denying any recently, denying any visual hallucinations, or delusions. Patient had reported episodes of irritability but no other hypomanic or manic symptoms that would support a diagnosis of bipolar disorder at this time. Collateral contacts patient's mother, Vianney . Review of Systems Except as stated in HPI: all other systems reviewed are Neg Mental Status Examination Appearance: Appropriate Consciousness: Alert Orientation: x4 Motor Activity: Normal gait Speech: Unremarkable Language: Adequate Fund of Knowledge: Adequate Attention and Concentration: Adequate Memory: Unremarkable Mood: Sad Affect: Appropriate Thought Process & Associations: Intact Thought Content: Appropriate Hallucination Type: None Delusion Type: None Suicidal Ideation: No Suicidal Plan: No Suicidal Intention: No Homicidal Ideation: No Homicidal Plan: No Homicidal Intention: No Insight: Fair Judgment: Impulsive Results Labs Labs reviewed Test 02/14/18 07:04 Blood Urea Nitrogen 10 MG/DL Creatinine 0.98 MG/DL Random Glucose 85 MG/DL Calcium Level 8.7 MG/DL Sodium Level 143 MEQ/L Potassium Level 4.4 MEQ/L Chloride Level 108 MEQ/L Carbon Dioxide Level 28.1 MEQ/L Anion Gap 7 MEQ/L Estimat Glomerular Filtration Rate 91 ML/MIN Triglycerides Level 168 MG/DL Cholesterol Level 124 MG/DL LDL Cholesterol 53 MG/DL HDL Cholesterol 37.4 MG/DL Cholesterol/HDL Ratio 3.31 RATIO Vitals/IOs Vital Signs Date Time Temp Pulse Resp B/P (MAP) Pulse Ox O2 Delivery O2 Flow Rate FiO2 02/14/18 06:20 98.1 60 18 125/74 (91) 97 Intake and Output 02/14/18 02/14/18 02/15/18 08:00 16:00 00:00 Intake Total 240 ml Balance 240 ml Assessment & Plan Problem List: (1) Bipolar disorder ICD Codes: F31.9 - Bipolar disorder, unspecified Assessment & Plan Patient at this time continues report feeling depressed, fair insight into recent suicide attempt. We will continue patient on fluoxetine 10 mg p.o. 1 with plan to increase to 20 mg p.o. daily thereafter. We will continue to monitor mood and behavior. Patient will sign for voluntary admission. Collateral information pending. This was planning a progress. Justification for Cont. Inpt. At risk of further decompensation at lower level of care. Discharge Planning Patient return back to her uncle's home when psychiatrically stable. Rocco Mckeon MD February 14, 2018 13:39
[2018-02-14 17:16] LABS: HEMOGLOBIN A1C 4.6 % (4.3-6.0)
[2018-02-14 18:28] VITALS: BP 114/67; PULSE 68; RESP 17; TEMP 97.6; O2SAT 99
[2018-02-15 05:50] VITALS: BP 114/74; PULSE 67; RESP 16; TEMP 98.1; O2SAT 100; O2SAT 99
[2018-02-15] MEDS: FLUoxetine HCL 20 MG CAP PO SCH (08:34)
--- NOTE | 2018-02-15 16:20 | HHI.PYPN ---
Subjective Remarks Patient seen for follow, chart reviewed. Discussion nursing staff reported the patient as a compliant with treatment, no behavioral disturbances denying suicide ideations today. Patient was found lying hospital bed noted B, cooperative. Patient states he had gotten a group yesterday continues to have disturbed sleep and will try to take diphenhydramine this evening for the same. Patient states that his mood has been "better", states his parents had visited which went well. Patient reports feeling depressed but is improving. Patient denies any perceptional services or any suicide ideations at this time. Review of Systems Except as stated in HPI: all other systems reviewed are Neg Mental Status Examination Appearance: Appropriate Consciousness: Alert Orientation: x4 Motor Activity: Normal gait Speech: Unremarkable Language: Adequate Fund of Knowledge: Adequate Attention and Concentration: Adequate Memory: Unremarkable Mood: Sad Affect: Appropriate Thought Process & Associations: Intact Thought Content: Appropriate Hallucination Type: None Delusion Type: None Suicidal Ideation: No Suicidal Plan: No Suicidal Intention: No Homicidal Ideation: No Homicidal Plan: No Homicidal Intention: No Insight: Fair Judgment: Impulsive Results Vitals/IOs Vital Signs Date Time Temp Pulse Resp B/P (MAP) Pulse Ox O2 Delivery O2 Flow Rate FiO2 02/15/18 05:50 98.1 67 16 114/74 (87) 100 Intake and Output 02/15/18 02/15/18 02/16/18 08:00 16:00 00:00 Intake Total 0 ml 240 ml Balance 0 ml 240 ml Assessment & Plan Problem List: (1) Bipolar disorder ICD Codes: F31.9 - Bipolar disorder, unspecified Assessment & Plan Patient continues report feeling depressed but stating that it is improving. Patient denying any suicide ideations. Patient tolerated medication well with recent increase. We will continue to monitor mood and behavior. Patient does well over the weekend patient like for discharge soon. Collateral information from patient's mother prior to discharge will be necessary to provide support. Discharge planning in progress. Justification for Cont. Inpt. At risk of further decompensation a lower level care. Discharge Planning Patient like to be able to return back to [facility] residence when psychiatrically stable. Rocco Mckeon MD February 15, 2018 16:20
[2018-02-15 18:00] VITALS: BP 126/71; PULSE 71; TEMP 98.4; O2SAT 100
[2018-02-16 06:40] VITALS: BP 102/66; PULSE 57; RESP 16; TEMP 97.7; O2SAT 99
[2018-02-16] MEDS: FLUoxetine HCL 20 MG CAP PO SCH (10:14)
--- NOTE | 2018-02-16 15:23 | HHI.PYPN ---
Subjective Remarks Chart reviewed and discussed with patient. Patient in common area sitting with other patients. He is pleasant and cooperative. States that he is feeling alot better. Sleeping and eating well. States that he plans to be discharged home to his parents. 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 Denies any thoughts of suicide. Stable and can articulate a discharge plan. Mental Status Examination Appearance: Appropriate Consciousness: Alert Orientation: x4 Motor Activity: Normal gait Speech: Unremarkable Language: Adequate Fund of Knowledge: Adequate Attention and Concentration: Adequate Memory: Unremarkable Mood: Appropriate Affect: Appropriate Thought Process & Associations: Intact Thought Content: Appropriate Hallucination Type: None Delusion Type: None Suicidal Ideation: No Suicidal Plan: No Suicidal Intention: No Homicidal Ideation: No Homicidal Plan: No Homicidal Intention: No Insight: Fair Judgment: Impulsive Results Vitals/IOs Vital Signs Date Time Temp Pulse Resp B/P (MAP) Pulse Ox O2 Delivery O2 Flow Rate FiO2 02/16/18 06:40 97.7 57 16 102/66 (78) 99 Intake and Output 02/16/18 02/16/18 02/17/18 08:00 16:00 00:00 Intake Total 1080 ml Balance 1080 ml Assessment & Plan Problem List: (1) Bipolar disorder ICD Codes: F31.9 - Bipolar disorder, unspecified Assessment & Plan: Patient is cooperative and pleasant. Engaged in conversation with other patients and smiling. States that he plans to discharge home to his parents. 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 He feels that his mood is better and he feels stable. He endorses that he has no suicidal ideations currently. Discharge planning continuous. Assessment & Plan Estimated LOS: days Justification for Cont. Inpt. Moving patient to a lower level of care may lead to his decompensation. Stacy Laguerre February 16, 2018 15:23
[2018-02-17 05:15] VITALS: BP 107/64; PULSE 61; RESP 16; TEMP 97.7; O2SAT 99
[2018-02-17] MEDS: FLUoxetine HCL 20 MG CAP PO SCH (09:31)
--- NOTE | 2018-02-17 14:55 | HHI.PYPN ---
Subjective Remarks Patient seen and examined in weekend coverage. Chart reviewed. Case discussed with nursing staff who reports the patient is doing very well on the unit. On my examination today, the patient is in good spirits. He feels like he has improved versus admission. He denies any suicidal or homicidal ideation. Denies any side effects from medications. No physical complaints. No signs of withdrawal noted. Review of Systems Except as stated in HPI: all other systems reviewed are Neg Mental Status Examination Appearance: Appropriate Consciousness: Alert Orientation: x4 Motor Activity: Other (No motor abnormalities noted) Speech: Unremarkable Language: Adequate Fund of Knowledge: Adequate Attention and Concentration: Adequate Memory: Unremarkable Mood: Appropriate Affect: Appropriate Thought Process & Associations: Intact Thought Content: Appropriate Hallucination Type: None Delusion Type: None Suicidal Ideation: No Suicidal Plan: No Suicidal Intention: No Homicidal Ideation: No Homicidal Plan: No Homicidal Intention: No Insight: Fair Judgment: Impulsive Results Labs Labs reviewed Vitals/IOs Vital Signs Date Time Temp Pulse Resp B/P (MAP) Pulse Ox O2 Delivery O2 Flow Rate FiO2 02/17/18 05:15 97.7 61 16 107/64 (78) 99 Assessment & Plan Problem List: (1) Bipolar disorder ICD Codes: F31.9 - Bipolar disorder, unspecified Assessment & Plan Continue current psychotropic medication as ordered. Discontinue CIWA as scores have been 0. Continue other medications and care as ordered. Justification for Cont. Inpt. Risk for decompensation Discharge Planning As ordered by primary psychiatrist Presley Singh MD February 17, 2018 14:55
[2018-02-17 19:06] VITALS: BP 120/60; PULSE 66; RESP 16; TEMP 98; O2SAT 99
[2018-02-18 06:00] VITALS: BP 125/78; PULSE 59; RESP 16; TEMP 97.7; O2SAT 99
[2018-02-18] MEDS: FLUoxetine HCL 20 MG CAP PO SCH (09:05)
[2018-02-18] MEDS ORDERED: FLUO20CA12 PO (14:13)
--- NOTE | 2018-02-18 14:14 | HHI.DS ---
Psychiatry Discharge Summary Inpatient Psychiatric care?: Yes Advance Directive: No Reason Not Provided: Due to Patient Condition Mental Health AdvanceDirective: No Health Care Proxy: No Admission Admission Date February 13, 2018 at 15:10 Admission Diagnosis: (1) Bipolar disorder ICD Code: F31.9 - Bipolar disorder, unspecified Brief History This is a late entry, the patient was seen in February 13 at 10:30 AM. The patient is 27-year-old man, homeless, single, employed, with psychiatric history of bipolar disorder, alcohol and cannabis use disorder, 1 previous psychiatric hospitalizations, 2 previous suicide attempts, no significant medical history, who presented to the emergency department after intentional overdose to harm himself. He took a box of Advil cold and cough medication, drank a bottle of NyQuil cold medication, also drank 2 beers. Patient was consulted to psychiatry to address suicidal attempt. Collateral information from her mother Vianney, , was obtained. Mother states that the patient has been homeless, seclusive, drinking alcohol and using drugs , and also being depressed for some months. She says that the patient should be psychotropics, but he is not taking them. She is afraid that the patient is going to kill himself if his release. The case was also discussed with primary medical team. EMR reviewed. Psychiatric evaluation the patient is calm, cooperative, pleasant. The patient is eating his breakfast. He reports that yesterday he was feeling overwhelmed, frustrated and he overdosed with intentions today. The patient says that he took about 20 pills, took alcohol and an entire bottle of NyQuil. Patient states that when he did that he wanted to kill himself. He says that time to time, even though he is doing okay, he has like a black cloud and he feels very down and depressed and the only thing that he wants is to kill himself. Patient reports that he does not know what happened to him. He says that he tried to commit suicide in the past under the same circumstances. He does report symptoms of depression in the context of homelessness, lack of social and family support, "generalized pessimism.". At this moment he denies suicidal enemas ideation, he denies visual and auditory hallucinations. He is fully oriented 3. Tobacco Use In Past 30 Days: No Tobacco Past 30 Days Alcohol Use: Monthly or Less Hospital Course Patient is a 19-year-old man, single, employed, domiciled with uncle for the past 2 months, past psychiatric history of bipolar disorder as per patient with no formal diagnoses, 1 previous psychiatric admission (5 years ago) , 3 previous suicide attempts, no self-injurious behavior, with a substance use history of remote polysubstance use, currently with alcohol use disorder and marijuana use disorder, with a past medical history significant for enlarged heart and congenital kidney (1 kidney), who was brought into the ED after an overdose in a suicide attempt with a box of Advil cold and cough and a bottle of NyQuil along with ingestion of 2 beers in the context of worsening depression which patient was admitted to the inpatient psychiatry for further evaluation and management. Patient was seen and examined on the unit by psychiatry. Patient was started on fluoxetine and titrated to 20mg PO daily, which patient tolerated well with no adverse drug reactions noted. There was no evidence of any suicidality or homicidality on the inpatient unit and was noted to have improvement of mood with significant decrease in depression with progression of treatment. Patient's behavior had been noted to be calm, cooperative, stable mood and noted to have improvement in mood and noted to be participatory and cooperative with staff with no behavioral disturbances. He agrees with outpatient follow up to continue mental health treatment. Counselor has made follow-up arrangements for continuity of care. On the day of discharge: Patient seen and examined with nurse and counselor. Chart reviewed. Case discussed with nurse and counselor. No behavioral issues overnight. On my examination today, the patient is agreeable to outpatient follow up and will discharged to [facility] residence. He denies any suicidal or homicidal ideation, intent or plan on direct questioning and contracts for safety. I can elicit no mood symptoms; denies any audiovisual hallucinations. No delusional material verbalized today. No physical complaints. Suicide and violence risk assessment on day of discharge both suggest lower imminent risk, and the patient's level of function is adequate for planned level of outpatient care. Patient has maximized benefit from this inpatient psychiatric hospital stay and will be discharged to back to his residence today with follow-up as arranged by counselor. Patient advised to return to psychiatric emergency room for any concerning psychiatric symptoms. Patient agrees with plan. Results Blood Pressure 125 / 78 Vital Signs Date Time Temp Pulse Resp B/P (MAP) Pulse Ox O2 Delivery O2 Flow Rate FiO2 02/18/18 06:00 97.7 59 16 125/78 (94) 99 Laboratory Results Test 02/14/18 07:04 Cholesterol Level 124 MG/DL (120-200) HDL Cholesterol 37.4 MG/DL (40.0-60.0) Hemoglobin A1c 4.6 % (4.3-6.0) LDL Cholesterol 53 MG/DL (0-99) Triglycerides Level 168 MG/DL (42-150) Summary of Procedures None Pending results at discharge: No Medications # of Antipsychotic meds at D/C: 0 Approp Antipsych med options 1 - Minimum of three failed multiple trials of monotherapy. 2 - Documented plan to taper to monotherapy due to previous use of multiple meds OR cross-taper in progress at D/C. 3 - Documentation of augmentation of Clozapine. 4 - Justification other than those listed in allowable values 1-3, document here : Discharge Discharge Date: February 18, 2018 Discharge Diagnosis: (1) Bipolar disorder ICD Code: F31.9 - Bipolar disorder, unspecified Pt Condition on Discharge: Stable Discharge Disposition: Discharge Home Discharge Instructions Diet Instructions: As Tolerated, No Restrictions Activities you can perform: Regular-No Restrictions Scheduled Appointment: Adis Mayorga Appointment Date: February 19, 2018 Appointment Time: 7:15am Discharge Time > 30 minutes Mental Status Examination Appearance: Appropriate Consciousness: Alert Orientation: x4 Motor Activity: Other (No motor abnormalities noted) Speech: Unremarkable Language: Adequate Fund of Knowledge: Adequate Attention and Concentration: Adequate Memory: Unremarkable Mood: Appropriate Affect: Appropriate Thought Process & Associations: Intact Thought Content: Appropriate Hallucination Type: None Delusion Type: None Suicidal Ideation: No Suicidal Plan: No Suicidal Intention: No Homicidal Ideation: No Homicidal Plan: No Homicidal Intention: No Insight: Adequate Judgment: Adequate Discharge/Advance Care Plan Health Problems: (1) Bipolar disorder Goals to promote your health * To prevent worsening of your condition and complications * To maintain your health at the optimal level Directions to meet your goals Take your medications as prescribed Follow your dietary instruction Follow activity as directed Keep your appointments as scheduled Take your immunizations and boosters as scheduled If your symptoms worsen call your PCP, if no PCP go to Urgent Care Center or Emergency Room For 16/04 questions related to your inpatient stay or results of tests pending at discharge, please contact Dr. Rocco Mckeon at Smoking is Dangerous to Your Health. Avoid second hand smoking Rocco Mckeon MD February 18, 2018 14:14
== END 2018-02-18 15:45 | disposition home or self-care (01) | DRG 885 ==
LOC: H4EA 15:10 → H260 02-15 15:18
PROVIDERS: ADMIT Student in an Organized Health Care Education/Training Program; ATTEND Student in an Organized Health Care Education/Training Program
DX: F31.9 Bipolar disorder, unspecified (principal); R45.851 Suicidal ideations; F12.90 Cannabis use, unspecified, uncomplicated; Z91.5 Personal history of self-harm; Z72.89 Other problems related to lifestyle; Z59.0 Homelessness
CPT/HCPCS: 80048; 80061; 83036